=== PATIENT | female | born 1985 | race Caucasian/White ===

== ENCOUNTER 2020-12-06 14:10 | Inpatient (IN) | payer OTHER ==
[~2020-12-06] VITALS: Ht 167.6 cm; Wt 81.0 kg
[2020-12-06] MEDS ORDERED: PLEASE ENTER HEIGHT AND WEIGHT MC SCH (17:00)
[2020-12-06] MEDS ORDERED: PLEASE ENTER ALLERGIES MC SCH (17:00)
[2020-12-06] MEDS: LACTATED RINGERS 1,000 ML IV SCH ×11 (17:00→19:50)
[2020-12-06] MEDS ORDERED: PENICILLIN GK 5,000,000 UNITS in DEXTROSE 5% 100 ML IV ONE (17:00)
[2020-12-06 17:21] LABS: BASOPHILS % (AUTO) 0 % (0-1); EOSINOPHILS % (AUTO) 0 % (1-7); LYMPHOCYTES % (AUTO) 9 % (22-44); MEAN CORPUSCULAR HEMOGLOBIN 33.7 pg (27.0-34.8); MEAN CORPUSCULAR HGB CONC 35.4 g/dL (32.4-35.8); MEAN PLATELET VOLUME 8.5 fL (7.4-10.4); MONOCYTES % (AUTO) 2 % (2-9); NEUTROPHILS % (AUTO) 89 % (42-75); PLATELET COUNT 281 x10^3/uL (130-400); RED BLOOD COUNT 4.45 x10^6/uL (3.82-5.3); RED CELL DISTRIBUTION WIDTH 13.1 % (9.6-15.2)
[2020-12-06 17:22] LABS: MD NO
[2020-12-06] MEDS ORDERED: MISOPROSTOL 200 MCG TABLET ONE (21:12)
[2020-12-06] MEDS ORDERED: OXYTOCIN 30U/ 0.9% NaCL 500ML 500 ML ONE (21:12)
[2020-12-06] MEDS ORDERED: NEWBORN KIT ONE (21:12)
[2020-12-06] MEDS ORDERED: LIDOCAINE 1%, 20ML ONE (21:12)
[2020-12-06] MEDS: PENICILLIN GK 2,500,000 UNITS in DEXTROSE 5% 100 ML IV SCH (21:25)
[2020-12-06 21:50] LABS: ALANINE AMINOTRANSFERASE 38 U/L (12-78); ALBUMIN 2.7 g/dL (3.4-5.0); ANION GAP 8 mmol/L (5-15); CALCIUM 8.8 mg/dL (8.5-10.1); CHLORIDE 108 mmol/L (98-107); CREATININE 0.63 mg/dL (0.55-1.02)
[2020-12-06 21:52] LABS: ALKALINE PHOSPHATASE 78 U/L (45-117); BILIRUBIN,TOTAL 0.4 mg/dL (0.2-1.0); TOTAL PROTEIN 6.7 g/dL (6.4-8.2)
[2020-12-07] MEDS: PENICILLIN GK 2,500,000 UNITS in DEXTROSE 5% 100 ML IV SCH ×6 (01:28→19:00)
[2020-12-07] MEDS: D5%-LACTATED RINGERS 1,000 ML IV SCH ×3 (03:00→19:00)
[2020-12-07] MEDS ORDERED: METOCLOPRAMIDE 5 MG/ML, 2ML IVPush PRN (03:00)
[2020-12-07] MEDS ORDERED: ONDANSETRON 2MG/ML, 2ML IVPush PRN (03:00)
[2020-12-07] MEDS ORDERED: FENTANYL PF 100 MCG/2ML IV PRN (03:00)
[2020-12-07] MEDS ORDERED: SODIUM CITRATE/CITRIC ACID 30 ML UDC PO PRN (03:00)
[2020-12-07] MEDS ORDERED: TERBUTALINE 1 MG/ML, 1ML IVPush PRN (03:00)
[2020-12-07] MEDS ORDERED: FENTANYL PF 100 MCG/2ML IVPush PRN (03:00)
[2020-12-07] MEDS ORDERED: TERBUTALINE 1 MG/ML, 1ML SQ PRN (03:00)
[2020-12-07] MEDS ORDERED: CALCIUM CARBONATE 500 MG TAB.CHEW PO PRN (03:00)
[2020-12-07] MEDS ORDERED: BUPIVACAINE 0.25% ONE (03:16)
[2020-12-07] MEDS ORDERED: FENTANYL/BUPIV./NS/PF 250 ML EPIDCONT ONE (03:16)
[2020-12-07] MEDS ORDERED: FENTANYL/BUPIV./NS/PF 250 ML EPIDCONT SCH (03:30)
[2020-12-07] MEDS ORDERED: LACTATED RINGERS 1,000 ML IVBOLUS PRN (03:30)
[2020-12-07] MEDS: LACTATED RINGERS 1,000 ML IV SCH ×2 (03:30→11:30)
[2020-12-07] MEDS ORDERED: NALOXONE 0.4 MG/ML, 1ML IVPush PRN (03:30)
[2020-12-07] MEDS ORDERED: EPHEDRINE 50 MG/ML, 1ML IVPush PRN (03:30)
[2020-12-07] MEDS: OXYTOCIN 30U/ 0.9% NaCL 500ML 500 ML IV SCH ×2 (05:43→16:00)
[2020-12-07] MEDS ORDERED: ONDANSETRON 2MG/ML, 2ML IV PRN (06:00)
[2020-12-07] MEDS ORDERED: METHYLERGONOVINE 0.2 MG/ML IM PRN (06:00)
[2020-12-07] MEDS ORDERED: ACETAMINOPHEN 325 MG TABLET PO PRN (06:00)
[2020-12-07] MEDS ORDERED: SIMETHICONE 80 MG CHEW TAB PO PRN (06:00)
[2020-12-07] MEDS: PRENATAL VIT/IRON/FA 1 EACH TABLET PO SCH (09:00)
[2020-12-07 10:00] VITALS: BP 130/85
[2020-12-07 13:17] LABS: BASOPHILS % (AUTO) 0 % (0-1); EOSINOPHILS % (AUTO) 0 % (1-7); LYMPHOCYTES % (AUTO) 9 % (22-44); MEAN CORPUSCULAR HEMOGLOBIN 33.3 pg (27.0-34.8); MEAN CORPUSCULAR HGB CONC 34.7 g/dL (32.4-35.8); MEAN PLATELET VOLUME 8.5 fL (7.4-10.4); MONOCYTES % (AUTO) 7 % (2-9); NEUTROPHILS % (AUTO) 84 % (42-75); PLATELET COUNT 289 x10^3/uL (130-400); RED BLOOD COUNT 4.37 x10^6/uL (3.82-5.3); RED CELL DISTRIBUTION WIDTH 13.2 % (9.6-15.2)
[2020-12-07 13:39] LABS: MD SCAN
[2020-12-07 15:00] VITALS: BP 110/73
[2020-12-07] MEDS: IBUPROFEN 600 MG TABLET PO PRN ×2 (17:01→23:03)
[2020-12-07 19:14] VITALS: BP 115/79
[2020-12-07] MEDS: DOCUSATE 100 MG CAPSULE PO PRN (23:04)
[2020-12-08 00:34] VITALS: BP 107/70
[2020-12-08] MEDS: OXYTOCIN 30U/ 0.9% NaCL 500ML 500 ML IV SCH ×3 (02:00→22:00)
[2020-12-08 04:15] VITALS: BP 112/73
[2020-12-08] MEDS: IBUPROFEN 600 MG TABLET PO PRN ×3 (05:25→19:26)
[2020-12-08 09:55] VITALS: BP 107/76
[2020-12-08] MEDS: PRENATAL VIT/IRON/FA 1 EACH TABLET PO SCH (10:27)
[2020-12-08 19:04] VITALS: BP 115/76
[2020-12-08] MEDS: DOCUSATE 100 MG CAPSULE PO PRN (19:26)
[2020-12-09 07:00] VITALS: BP 116/75
[2020-12-09] MEDS: IBUPROFEN 600 MG TABLET PO PRN ×2 (07:54→15:01)
[2020-12-09] MEDS: OXYTOCIN 30U/ 0.9% NaCL 500ML 500 ML IV SCH (08:51)
[2020-12-09] MEDS: PRENATAL VIT/IRON/FA 1 EACH TABLET PO SCH (08:51)
== END 2020-12-09 15:30 | disposition home or self-care (01) | DRG 805 ==
LOC: LDIP 14:24 → 2NW 12-07 08:48
PROVIDERS: ADMIT Obstetrics & Gynecology Maternal & Fetal Medicine; ATTEND Obstetrics & Gynecology Maternal & Fetal Medicine
PROC: 10E0XZZ Delivery of Products of Conception, External Approach (ICD-10-PCS; principal; 2020-12-07)
PROC: 3E0R3BZ Introduction of Anesthetic Agent into Spinal Canal, Percutaneous Approach (ICD-10-PCS; 2020-12-07)
PROC: 00HU33Z Insertion of Infusion Device into Spinal Canal, Percutaneous Approach (ICD-10-PCS; 2020-12-07)
DX: O41.03X0 Oligohydramnios, third trimester, not applicable or unspecified (principal); O45.93 Premature separation of placenta, unspecified, third trimester; Z37.0 Single live birth; O60.14X0 Preterm labor third trimester with preterm delivery third trimester, not applicable or unspecified; O42.913 Preterm premature rupture of membranes, unspecified as to length of time between rupture and onset of labor, third trimester; Z3A.34 34 weeks gestation of pregnancy; Z20.822 Contact with and (suspected) exposure to COVID-19
CPT/HCPCS: 36415; 80053; 85025; 85384; 86592; 86762; 86850; 86900; 87340; 87635; 87806; 88307; G0378; J2540; G0475; J2590; J7120